=== PATIENT | male | born 1970 | race Caucasian/White ===

== ENCOUNTER 2016-07-23 04:13 | Emergency (ER) | payer OTHER ==
[~2016-07-23] VITALS: Ht 185.4 cm; Wt 83.9 kg
[2016-07-23] MEDS ORDERED: IV NORMAL SALINE 1000ML BAG 1,000 ML IV SCH (04:30)
[2016-07-23] MEDS ORDERED: ACETAMINOPHEN 500 MG TABLET PO ONE (04:30)
--- NOTE | 2016-07-23 04:32 | PHYS DOC ---
Past Medical History Past Medical History: No Pertinent History Past Surgical History: Appendectomy Smoking: Cigarettes Alcohol Use: Occasionally Drug Use: None Adult General Chief Complaint Chief Complaint: SYNCOPE HPI HPI Patient is a 46 year old male who presents by EMS from the [facility] for syncope. He has not eaten since lunch on the prior day and he went with his girlfriend to the [facility] to eat. He was feeling weak and flush while standing at the counter. He then began to have weak legs, so leaned over the counter. He stood up and felt he would pass out, then he did. Girlfriend states his eyes rolled back and he fell to the ground. He was weak and confused for a few minutes, had a couple episodes of emesis, but he is now at mental baseline. He still feels general ill feeling with some muscle cramps but now without nausea. States he is very hungry. States this ill feeling and cramps are all over his body including his chest, but he denies chest pain/pressure specifically. He denies dyspnea, cough, hemoptysis, palpitations, headache, vision changes, dizziness, numbness, tingling, weakness, leg pain or swelling, fever or chills, exertional symptoms, orthopnea. Review of Systems Review of Systems Constitutional: Denies fever or chills [] Eyes: Denies change in visual acuity, redness, or eye pain [] HENT: Denies nasal congestion or sore throat [] Respiratory: Denies cough or shortness of breath [] Cardiovascular: No additional information not addressed in HPI [] GI: Denies abdominal pain, bloody stools or diarrhea [] : Denies dysuria or hematuria [] Musculoskeletal: Denies back pain or joint pain [] Integument: Denies rash or skin lesions [] Neurologic: Denies headache, focal weakness or sensory changes [] Endocrine: Denies polyuria or polydipsia [] Current Medications Current Medications Current Medications Medications (Trade) Dose Ordered Sig/Leighton Start Time Stop Time Status Last Admin Dose Admin Acetaminophen (Tylenol) 500 mg 1X ONCE 07/23/16 04:30 07/23/16 04:36 DC 07/23/16 04:41 500 MG Sodium Chloride (Iv Sodium Chloride 0.9% 1000ml Bag) 1,000 ml @ 1,000 mls/hr Q1H 07/23/16 04:30 07/23/16 05:29 07/23/16 04:42 1,000 MLS/HR Allergies Allergies Allergies Coded Allergies Type Severity Reaction Last Updated Verified Penicillins Allergy Unknown 07/23/16 Yes Physical Exam Physical Exam Constitutional: Well developed, well nourished, no acute distress, non-toxic appearance. [] HENT: Normocephalic, atraumatic, bilateral external ears normal, oropharynx moist, no oral exudates, nose normal. [] Eyes: PERRLA, EOMI, conjunctiva normal, no discharge. [] Neck: Normal range of motion, supple, no stridor. [] Cardiovascular:Heart rate regular rhythm [] Lungs & Thorax: Bilateral breath sounds clear to auscultation [] Abdomen: Bowel sounds normal, soft, no tenderness. [] Skin: Warm, dry, no erythema, no rash. [] Back: Normal ROM. [] Extremities: No tenderness, ROM intact, no edema, normal ROM. [] Neurologic: Alert and oriented X 3, normal motor function, normal sensory function, no focal deficits noted. [] Psychologic: Affect normal, judgement normal, mood normal. [] Current Patient Data Vital Signs Vital Signs Date Time Temp Pulse Resp B/P Pulse Ox O2 Delivery O2 Flow Rate FiO2 07/23/16 04:15 98 79 16 126/82 99 Room Air 98.0 Lab Values Laboratory Tests Test 07/23/16 04:15 White Blood Count 8.4x10^3/uL (4.0-11.0) Red Blood Count 4.93x10^6/uL (4.30-5.70) Hemoglobin 15.9g/dL (13.0-17.5) Hematocrit 46.8% (39.0-53.0) Mean Corpuscular Volume 95fL (79-100) Mean Corpuscular Hemoglobin 32pg (25-35) Mean Corpuscular Hemoglobin Concent 34g/dL (31-37) Red Cell Distribution Width 13.0% (11.5-14.5) Platelet Count 149x10^3/uL (140-400) Neutrophils (%) (Auto) 63% (31-73) Lymphocytes (%) (Auto) 29% (24-48) Monocytes (%) (Auto) 6% (0-9) Eosinophils (%) (Auto) 1% (0-3) Basophils (%) (Auto) 1% (0-3) Neutrophils # (Auto) 5.3x10^3uL (1.8-7.7) Lymphocytes # (Auto) 2.4x10^3/uL (1.0-4.8) Monocytes # (Auto) 0.5x10^3/uL (0.0-1.1) Eosinophils # (Auto) 0.1x10^3/uL (0.0-0.7) Basophils # (Auto) 0.1x10^3/uL (0.0-0.2) Sodium Level 143mmol/L (136-145) Potassium Level 4.0mmol/L (3.5-5.1) Chloride Level 104mmol/L (98-107) Carbon Dioxide Level 28mmol/L (21-32) Anion Gap 11 (6-14) Blood Urea Nitrogen 18mg/dL (8-26) Creatinine 1.0mg/dL (0.7-1.3) Estimated GFR (Cockcroft-Gault) 81.2 Glucose Level 130mg/dL (70-99) H Calcium Level 9.4mg/dL (8.5-10.1) Troponin I Quantitative < 0.017ng/mL (0.000-0.055) Laboratory Tests 07/23/16 04:15 Laboratory Tests 07/23/16 04:15 EKG EKG EKG as interpreted by me as normal sinus rhythm, rate 75, no ST-T changes, normal intervals, no ectopy Radiology/Procedures Radiology/Procedures Chest xray as interpreted by me with no acute cardiopulmonary disease process Course & Med Decision Making Course & Med Decision Making Pertinent Labs and Imaging studies reviewed. (See chart for details) Workup is unremarkable. He is feeling better after eating here. He is ambulatory with a steady gait. Return precautions given. He understands and agrees with plan. Dragon Disclaimer Dragon Disclaimer This electronic medical record was generated, in whole or in part, using a voice recognition dictation system. Departure Departure Impression: Primary Impression: Syncope Disposition: 01 HOME, SELF-CARE Condition: STABLE Patient Instructions: Syncope, [id number] Additional Instructions: Follow up with your primary care doctor. Return for any concerns. Problem Qualifiers Primary Impression: Syncope Syncope type: unspecified Qualified Code: R55 - Syncope and collapse Kamaljit COLON MD Jul 23, 2016 04:32
[2016-07-23 04:35] LABS: BASO # 0.1 x10^3/uL (0.0-0.2); BASO % 1 % (0-3); EOS % 1 % (0-3); HEMATOCRIT 46.8 % (39.0-53.0); HEMOGLOBIN 15.9 g/dL (13.0-17.5); LYMPH # 2.4 x10^3/uL (1.0-4.8); LYMPH % 29 % (24-48); MEAN CORPUSCULAR HEMOGLOBIN 32 pg (25-35); MEAN CORPUSCULAR HGB CONC 34 g/dL (31-37); MEAN CORPUSCULAR VOLUME 95 fL (79-100); MONO % 6 % (0-9); NEUT % 63 % (31-73); PLATELET COUNT 149 x10^3/uL (140-400); RED BLOOD COUNT 4.93 x10^6/uL (4.30-5.70); WHITE BLOOD COUNT 8.4 x10^3/uL (4.0-11.0)
--- NOTE | 2016-07-23 04:40 | ACF ---
Admission Forms Criteria SYNCOPE Clinical Indications for Admission to Inpatient Care ( Place 'X' for any and all applicable criteria): Admission is indicated for syncope and ANY ONE of the following (1)(2)(3)(4)(5) (6)(7) : [x]I. Inpatient admission required rather than observation care (Also use Syncope: Observation Care Criteria as appropriate) because of ANY ONE of the following: [ ]a) Hemodynamic instability that is severe or persistent [ ]b) Cardiac arrhythmias of immediate concern identified or strongly suspected (eg, needs electrophysiologic study) [ ]c) Acute coronary syndrome identified (Also use Myocardial Infarction or Angina Criteria form ) [ ]d) Structural cardiac disorder (eg, aortic stenosis) suspected as cause that requires immediate correction [ ]e) Respiratory symptoms (eg, dyspnea, tachypnea) that are severe or persistent [ ]f) Neurologic signs or symptoms that are severe or persistent ( eg, stroke, seizures, altered mental status) [ ]g) Severe electrolyte abnormalities requiring inpatient care [ ]h) Supplemental oxygen or respiratory treatment for over 24 hrs that are performable only in acute inpatient setting [ ]i) IV fluid to replace significant ongoing (eg, for over 24 hrs ) losses (>3 L/m2 per day) [ ]j) Continuous intravenous infusion of anticoagulation, platelet inhibitor, vasoactive, or antiarrhythmic medication(15)(16) [ ]k) Pulmonary artery catheter monitoring [ ]l) Temporary pacemaker placement(17) [ ]m) Emergent cardioversion(18) [X]n) Other conditions, treatment or monitoring requiring inpatient admission [ ]II. Suspicion of imminently dangerous cause (eg, rare causes like pericardial tamponade, pulmonary embolism) [ ]III. Syncope causing severe injury requiring hospitalization Extended stay beyond goal length of stay may be needed for(28) [ ]a) Dangerous arrhythmia(15)(23)(27)(29) [ ]b) Myocardial ischemia [ ]c) Seizure disorder [ ]d) Syncope-related injuries The original [employer] content created by [employer] has been revised. The portions of the content which have been revised are identified through the use of italic text or in bold, and [employer] has neither reviewed nor approved the modified material. All other unmodified content is copyright [employer]. Please see references footnoted in the original [facility] edition 2016 Admission Criteria Met?: No KENZIE ADLER Jul 23, 2016 04:40
[2016-07-23 04:44] LABS: CALCIUM 9.4 mg/dL (8.5-10.1); GFR 81.2
[2016-07-23 05:18] VITALS: BP 105/74
--- NOTE | 2016-07-23 07:49 | RAD ---
Exam performed: One view chest. Indication: syncope Date of Service: 07/23/2016 6:22 AM Comparison: None available. Single AP upright portable view chest findings: Cardiomediastinal silhouette is within limits of normal. No acute infiltrates, effusion or pneumothorax is detected. The bony structures are normal. Impression: No acute cardiopulmonary process is detected.
--- NOTE | 2016-07-23 11:09 | EKG ---
[facility] [address] [place] [address] Test Date: 2016-07-23 Test Time: 04:14:33 Pat Name: SAMANTHA PINA Department: Room: Gender: M Safety Coordinator: : 1970 Requested By: Kamaljit COLON Order Number: [id number] Reading MD: Measurements Intervals [place] Rate: 75 P: 37 AL: 156 QRS: -25 QRSD: 86 T: 77 QT: 352 QTc: 396 Interpretive Statements SINUS RHYTHM LEFTWARD AXIS R-S TRANSITION ZONE IN V LEADS DISPLACED TO THE RIGHT CONSIDER LEFT VENTRICULAR HYPERTROPHY T ABNORMALITY IN HIGH LATERAL LEADS RI6.01 Unconfirmed report No previous ECG available for comparison
== END 2016-07-23 05:30 | disposition home or self-care (01) ==
LOC: ER 04:13
DX: R55 Syncope and collapse (principal); F17.210 Nicotine dependence, cigarettes, uncomplicated; Z88.0 Allergy status to penicillin
CPT/HCPCS: 36415; 71010; 80048; 84484; 85027; 93005; 96360; 99285; J7030

== ENCOUNTER 2019-05-18 20:50 | Emergency (ER) | payer OTHER ==
[~2019-05-18] VITALS: Ht 177.8 cm; Wt 83.9 kg
[2019-05-18 21:44] LABS: BASO # 0.1 x10^3/uL (0.0-0.2); BASO % 1 % (0-3); EOS # 0.1 x10^3/uL (0.0-0.7); EOS % 1 % (0-3); HEMATOCRIT 45.4 % (39.0-53.0); HEMOGLOBIN 15.8 g/dL (13.0-17.5); LYMPH # 3.3 x10^3/uL (1.0-4.8); LYMPH % 32 % (24-48); MEAN CORPUSCULAR HEMOGLOBIN 33 pg (25-35); MEAN CORPUSCULAR HGB CONC 35 g/dL (31-37); MEAN CORPUSCULAR VOLUME 95 fL (79-100); MONO # 0.7 x10^3/uL (0.0-1.1); MONO % 7 % (0-9); NEUT # 6.2 x10^3/uL (1.8-7.7); NEUT % 59 % (31-73); PLATELET COUNT 190 x10^3/uL (140-400); RED BLOOD COUNT 4.75 x10^6/uL (4.30-5.70); RED CELL DISTRIBUTION WIDTH 12.9 % (11.5-14.5); WHITE BLOOD COUNT 10.4 x10^3/uL (4.0-11.0)
[2019-05-18 21:58] LABS: CALCIUM 8.9 mg/dL (8.5-10.1); GFR 80.4; POTASSIUM 3.7 mmol/L (3.5-5.1)
[2019-05-18 22:03] LABS: ALBUMIN 4.3 g/dL (3.4-5.0); ALBUMIN/GLOBULIN RATIO 1.2 (1.0-1.7); MAGNESIUM 2.1 mg/dL (1.8-2.4); TOTAL BILIRUBIN 0.5 mg/dL (0.2-1.0); TOTAL PROTEIN 7.8 g/dL (6.4-8.2)
[2019-05-18] MEDS: MULTIVIT INFUSN,ADULT 4,VIT K 10 ML, THIAMINE INJ 100 MG, FOLIC ACID INJ 1 MG in IV NOR... IV ONE (22:03)
[2019-05-18 22:14] LABS: CREATINE KINASE 56 U/L (39-308)
[2019-05-18 22:26] LABS: ACETAMIN < 2 mcg/ml (10-30); SALIC 5.2 mg/dL (2.8-20.0)
--- NOTE | 2019-05-18 22:40 | RAD ---
EXAM: CHEST ONE VIEW. HISTORY: Syncope. COMPARISON: 07/23/2016. FINDINGS: A frontal view of the chest is obtained. There are no confluent infiltrates. There is no pneumothorax or pleural effusion. The heart is not enlarged. IMPRESSION: 1. No confluent infiltrates. Electronically signed by: Jacob Mckenzie MD (05/18/2019 10:38 PM) [facility]
--- NOTE | 2019-05-18 22:42 | RAD ---
EXAM: CT Head without IV contrast CLINICAL HISTORY: Syncope, EtOH COMPARISON: None. TECHNIQUE: Routine CT of the head without contrast. Soft tissues and bone windows were reviewed. PQRS compliance statement - One or more of the following individualized dose reduction techniques were utilized for this study: 1. Automated exposure control 2. Adjustment of the mA and/or kV according to patient size 3. Use of iterative reconstruction technique FINDINGS: There is no evidence of hemorrhage, mass or extra-axial fluid collection. Contreras-white differentiation is maintained with no evidence of edema. There is no mass effect or shift of the intracranial structures. The ventricles, basilar cisterns and cortical sulci are normal in size and configuration for the patients stated age. The cerebellum and brainstem are unremarkable. The calvarium demonstrates no evidence of fracture or focal lesion. There is normal aeration of the visualized paranasal sinuses and mastoid air cells. The visualized portions of the orbits are normal. IMPRESSION: No evidence for acute intracranial process Electronically signed by: Daniel Infante MD (05/18/2019 10:40 PM) [facility]
--- NOTE | 2019-05-18 22:44 | RAD ---
EXAM: PA, oblique and lateral views left hand DATE: 05/18/2019 9:36 PM INDICATION: Syncope, left hand injury, left hand pain COMPARISON: No Prior FINDINGS/ IMPRESSION: Comminuted fracture through the midshaft of the middle finger metacarpal with butterfly fragment in mild apex dorsal dilatation. Moderate associated soft tissue swelling. Electronically signed by: Daniel Infante MD (05/18/2019 10:41 PM) [facility]
[2019-05-18 23:40] LABS: BILIRUBIN,URINE NEGATIVE (NEG); CLARITY,URINE CLOUDY; COLOR,URINE YELLOW; NITRITE,URINE NEGATIVE (NEG); PH,URINE 5.5; PROTEIN,URINE NEGATIVE (NEG-TRACE); UROBILINOGEN,URINE 0.2 mg/dL (0.2 mg/dL)
[2019-05-18 23:46] LABS: SQUAMOUS EPITHELIAL CELL,UR OCC /LPF
[2019-05-18 23:47] LABS: BACTERIA,URINE 0 /HPF (0-FEW); BARBITURATES NEG (NEG); BENZODIAZEPINES NEG (NEG); CANNABINOIDS NEG (NEG); COCAINE NEG (NEG); METHADONE NEG (NEG); OPIATES NEG (NEG); PHENCYCLIDINE NEG (NEG); RBC,URINE 0 /HPF (0-2); WBC,URINE 0 /HPF (0-4)
[2019-05-18 23:48] LABS: AMPHETAMINE/METHAMPHETAMINE NEG (NEG)
--- NOTE | 2019-05-19 | PHYS DOC ---
Past Medical History Past Medical History: Alcoholism, Diabetes-Type II, High Cholesterol Additional Past Medical Histor: "daily stroke like symptoms" Past Surgical History: Appendectomy Alcohol Use: Occasionally Drug Use: None Adult General Chief Complaint Chief Complaint: ALCOHOL INTOXICATION HPI HPI Patient is a 48 year old male with history of diabetes type 2, high cholesterol, alcoholism, who [place] after having a syncope episode. Patient himself states he was very drunk and passed out. He states he is a binge drinker. He is in the ED with a fianc who reports patient has had multiple syncope episodes, has been seen by the combination machine tender who recommended he follows up with the neurologist. Patient reports he has not seen a neurologist yet. Patient denies any chest pain or shortness of breath. He is complaining of moderate pain to the left middle finger described as sharp and constant worse on range of motion. He states he feels a little bit sobered up. Review of Systems Review of Systems Constitutional: Denies fever or chills [] Eyes: Denies change in visual acuity, redness, or eye pain [] HENT: Denies nasal congestion or sore throat [] Respiratory: Denies cough or shortness of breath [] Cardiovascular: No additional information not addressed in HPI [] GI: Denies abdominal pain, nausea, vomiting, bloody stools or diarrhea [] : Denies dysuria or hematuria [] Musculoskeletal: Reports left middle finger pain. Denies back pain Integument: Denies rash or skin lesions [] Neurologic: Denies headache, focal weakness or sensory changes [] Psych: Reports alcohol intoxication All other systems were reviewed and found to be within normal limits, except as documented in this note. Current Medications Current Medications Current Medications Medications (Trade) Dose Ordered Sig/Leighton Start Time Stop Time Status Last Admin Dose Admin Multivitamins 10 ml/Thiamine HCl 100 mg/Folic Acid 1 mg/Sodium Chloride 1,011.2 ml @ 1,000.088 mls/hr 1X ONCE 05/18/19 22:30 05/18/19 23:30 DC 05/18/19 22:03 1,000.088 MLS/HR Allergies Allergies Allergies Coded Allergies Type Severity Reaction Last Updated Verified Penicillins Allergy Intermediate 05/18/19 Yes Physical Exam Physical Exam Constitutional: Well developed, well nourished, no acute distress, non-toxic appearance. [] HENT: Normocephalic, bilateral external ears normal, oropharynx moist, no oral exudates, nose normal. [] Eyes: PERRLA, EOMI, conjunctiva normal, no discharge. [] Neck: Normal range of motion, no tenderness, supple, no stridor. [] Cardiovascular:Heart rate regular rhythm, no murmur [] Lungs & Thorax: Bilateral breath sounds clear to auscultation [] Abdomen: Bowel sounds normal, soft, no tenderness, no masses, no pulsatile masses. [] Skin: Warm, dry, no erythema, no rash. [] Back: No tenderness, no CVA tenderness. [] Extremities: Left middle finger knuckle appears deformed, tenderness to the left middle finger diffusely. Limited range of motion to the left middle finger. +2 left radial pulse. Adequate radial and ulnar sensation to the left middle finger. Cap refill less than 2 seconds the left middle finger. Neurologic: Alert and oriented X 3, normal motor function, normal sensory function, no focal deficits noted. Cranial nerves II through XII intact Psychologic: Flat affect, smells of alcohol Current Patient Data Vital Signs Vital Signs Date Time Temp Pulse Resp B/P (MAP) Pulse Ox O2 Delivery O2 Flow Rate FiO2 05/18/19 23:26 76 107/70 (82) 97 Room Air 05/18/19 20:50 97.3 16 97.3 Lab Values Laboratory Tests Test 05/18/19 21:03 05/18/19 23:30 White Blood Count 10.4 x10^3/uL (4.0-11.0) Red Blood Count 4.75 x10^6/uL (4.30-5.70) Hemoglobin 15.8 g/dL (13.0-17.5) Hematocrit 45.4 % (39.0-53.0) Mean Corpuscular Volume 95 fL (79-100) Mean Corpuscular Hemoglobin 33 pg (25-35) Mean Corpuscular Hemoglobin Concent 35 g/dL (31-37) Red Cell Distribution Width 12.9 % (11.5-14.5) Platelet Count 190 x10^3/uL (140-400) Neutrophils (%) (Auto) 59 % (31-73) Lymphocytes (%) (Auto) 32 % (24-48) Monocytes (%) (Auto) 7 % (0-9) Eosinophils (%) (Auto) 1 % (0-3) Basophils (%) (Auto) 1 % (0-3) Neutrophils # (Auto) 6.2 x10^3/uL (1.8-7.7) Lymphocytes # (Auto) 3.3 x10^3/uL (1.0-4.8) Monocytes # (Auto) 0.7 x10^3/uL (0.0-1.1) Eosinophils # (Auto) 0.1 x10^3/uL (0.0-0.7) Basophils # (Auto) 0.1 x10^3/uL (0.0-0.2) Sodium Level 137 mmol/L (136-145) Potassium Level 3.7 mmol/L (3.5-5.1) Chloride Level 99 mmol/L (98-107) Carbon Dioxide Level 24 mmol/L (21-32) Anion Gap 14 (6-14) Blood Urea Nitrogen 11 mg/dL (8-26) Creatinine 1.0 mg/dL (0.7-1.3) Estimated GFR (Cockcroft-Gault) 80.4 BUN/Creatinine Ratio 11 (6-20) Glucose Level 118 mg/dL (70-99) H Calcium Level 8.9 mg/dL (8.5-10.1) Magnesium Level 2.1 mg/dL (1.8-2.4) Total Bilirubin 0.5 mg/dL (0.2-1.0) Aspartate Amino Transferase (AST) 30 U/L (15-37) Alanine Aminotransferase (ALT) 51 U/L (16-63) Alkaline Phosphatase 96 U/L (46-116) Creatine Kinase 56 U/L (39-308) Creatine Kinase MB (Mass) < 0.5 ng/mL (0.0-3.6) Creatine Kinase MB Relative Index % (0-4) Troponin I Quantitative < 0.017 ng/mL (0.000-0.055) BP-Kbu-D-Type Natriuretic Peptide 21 pg/mL (0-124) Total Protein 7.8 g/dL (6.4-8.2) Albumin 4.3 g/dL (3.4-5.0) Albumin/Globulin Ratio 1.2 (1.0-1.7) Lipase 146 U/L (73-393) Thyroid Stimulating Hormone (TSH) 4.148 uIU/mL (0.358-3.74) H Salicylates Level 5.2 mg/dL (2.8-20.0) Salicylate Last Dose Date Unknown Salicylate Last Dose Time Unknown Acetaminophen Level < 2 mcg/ml (10-30) L Acetaminophen Last Dose Date Unknown Acetaminophen Last Dose Time Unknown Ethyl Alcohol Level 195 mg/dL (0-10) H Urine Collection Type Unknown Urine Color Yellow Urine Clarity Cloudy Urine pH 5.5 Urine Specific [place] 1.010 Urine Protein Negative mg/dL (NEG-TRACE) Urine Glucose (UA) Negative mg/dL (NEG) Urine Ketones (Stick) Negative mg/dL (NEG) Urine Blood Negative (NEG) Urine Nitrite Negative (NEG) Urine Bilirubin Negative (NEG) Urine Urobilinogen Dipstick 0.2 mg/dL (0.2 mg/dL) Urine Leukocyte Esterase Negative (NEG) Urine RBC 0 /HPF (0-2) Urine WBC 0 /HPF (0-4) Urine Squamous Epithelial Cells Occ /LPF Urine Bacteria 0 /HPF (0-FEW) Urine Mucus Slight /LPF Urine Opiates Screen Neg (NEG) Urine Methadone Screen Neg (NEG) Urine Barbiturates Neg (NEG) Urine Phencyclidine Screen Neg (NEG) Urine Amphetamine/Methamphetamine Neg (NEG) Urine Benzodiazepines Screen Neg (NEG) Urine Cocaine Screen Neg (NEG) Urine Cannabinoids Screen Neg (NEG) Urine Ethyl Alcohol Pos (NEG) Laboratory Tests 05/18/19 21:03 Laboratory Tests 05/18/19 21:03 EKG EKG [] Radiology/Procedures Radiology/Procedures []PROCEDURE: PORTABLE CHEST 1V EXAM: CHEST ONE VIEW. HISTORY: Syncope. COMPARISON: 07/23/2016. FINDINGS: A frontal view of the chest is obtained. There are no confluent infiltrates. There is no pneumothorax or pleural effusion. The heart is not enlarged. IMPRESSION: 1. No confluent infiltrates. Electronically signed by: Jacob Mckenzie MD (05/18/2019 10:38 PM) [facility] DICTATED and SIGNED BY: NATE MCKENZIE MD DATE: 05/18/19 223 PROCEDURE: CT HEAD WO CONTRAST EXAM: CT Head without IV contrast CLINICAL HISTORY: Syncope, EtOH COMPARISON: None. TECHNIQUE: Routine CT of the head without contrast. Soft tissues and bone windows were reviewed. PQRS compliance statement - One or more of the following individualized dose reduction techniques were utilized for this study: 1. Automated exposure control 2. Adjustment of the mA and/or kV according to patient size 3. Use of iterative reconstruction technique FINDINGS: There is no evidence of hemorrhage, mass or extra-axial fluid collection. Contreras-white differentiation is maintained with no evidence of edema. There is no mass effect or shift of the intracranial structures. The ventricles, basilar cisterns and cortical sulci are normal in size and configuration for the patients stated age. The cerebellum and brainstem are unremarkable. The calvarium demonstrates no evidence of fracture or focal lesion. There is normal aeration of the visualized paranasal sinuses and mastoid air cells. The visualized portions of the orbits are normal. IMPRESSION: No evidence for acute intracranial process Electronically signed by: Daniel Genao MD (05/18/2019 10:40 PM) [facility] DICTATED and SIGNED BY: DANIEL GENAO MD DATE: 05/18/192239 PROCEDURE: HAND LEFT 3V EXAM: PA, oblique and lateral views left hand DATE: 05/18/2019 9:36 PM INDICATION: Syncope, left hand injury, left hand pain COMPARISON: No Prior FINDINGS/ IMPRESSION: Comminuted fracture through the midshaft of the middle finger metacarpal with butterfly fragment in mild apex dorsal dilatation. Moderate associated soft tissue swelling. Electronically signed by: Daniel Genao MD (05/18/2019 10:41 PM) [facility] DICTATED and SIGNED BY: DANIEL GENAO MD DATE: 05/18/19 2241 Course & Med Decision Making Course & Med Decision Making Pertinent Labs and Imaging studies reviewed. (See chart for details) This is a 48-year-old male patient with a history of binge drinking who presents the ED today to be evaluated [place] Patient reports he was heavily drunk. He is only complaining of left middle finger pain. CT of the head is negative for any acute findings. CBC, CMP-no acute findings. Alcohol level 195-patient refused help with alcohol. I did talk to [facility] PAT team she recommended he follows up with employee assistance program at work or call his medical insurance and requests help with substance abuse treatment Left hand x-rays interpreted by radiologist Comminuted fracture through the mid shaft of the middle finger metacarpal with butterfly fragment in mild apex dorsal dilatation. Moderate associated soft tissue swelling. Patient was placed in the left hand volar splint by the technical services librarian, neurovascular exam done by me is intact. Instructed to call the orthopedic on Monday for a follow-up. Dragon Disclaimer Dragon Disclaimer This electronic medical record was generated, in whole or in part, using a voice recognition dictation system. Departure Departure Impression: Primary Impression: Syncope Additional Impressions: Alcohol intoxication Fracture of metacarpal of left hand, closed Disposition: 01 HOME, SELF-CARE Condition: STABLE Referrals: UNKNOWN PCP NAME (PCP) QUIRINO LO MD call him on Monday and set up a follow up appointment Patient Instructions: Alcohol Intoxication, Hand Fracture, Metacarpals, Syncope, [id number] Additional Instructions: You were evaluated in the emergency room for alcohol intoxication with a syncope episode. Please consider getting help as discussed with either your insurance company or employee health program at work You also have fracture of the left hand metacarpal, contact the provided ortho pedic doctor on Monday morning and set up a follow-up appointment as an outpatient Problem Qualifiers Primary Impression: Syncope Syncope type: unspecified Qualified Codes: R55 - Syncope and collapse Additional Impressions: Alcohol intoxication Complication of substance-induced condition: with unspecified complication Qualified Codes: F10.929 - Alcohol use, unspecified with intoxication, unspecified Fracture of metacarpal of left hand, closed Encounter type: initial encounter Metacarpal bone: third Metacarpal location: shaft Fracture alignment: nondisplaced Qualified Codes: S62.353A - Nondisplaced fracture of shaft of third metacarpal bone, left hand, initial encounter for closed fracture ANDREINA OLEARY APRN May 19, 2019 00:00
[2019-05-19 00:08] VITALS: BP 102/64
--- NOTE | 2019-05-19 16:31 | EKG ---
[facility] [address] [place] [address] Test Date: 2019-05-18 Test Time: 21:39:28 Pat Name: SAMANTHA PINA Department: Room: Gender: M Transportation Dispatch Manager: : 1970 Requested By: ANDREINA OLEARY Order Number: [id number] Reading MD: Measurements Intervals [place] Rate: 71 P: -147 [place]: 92 QRS: -18 QRSD: 94 T: 72 QT: 378 QTc: 411 Interpretive Statements SINUS RHYTHM LEFTWARD AXIS T ABNORMALITY IN HIGH LATERAL LEADS ABNORMAL ECG RI6.01 No previous ECG available for comparison
== END 2019-05-19 00:38 | disposition home or self-care (01) ==
LOC: ER 20:50
DX: S62.353A Nondisplaced fracture of shaft of third metacarpal bone, left hand, initial encounter for closed fracture (principal); R55 Syncope and collapse; F10.929 Alcohol use, unspecified with intoxication, unspecified; E11.9 Type 2 diabetes mellitus without complications; E78.00 Pure hypercholesterolemia, unspecified; Z88.0 Allergy status to penicillin; W18.39XA Other fall on same level, initial encounter; Y93.01 Activity, walking, marching and hiking; Y92.89 Other specified places as the place of occurrence of the external cause; Y99.8 Other external cause status
CPT/HCPCS: 29125; 36415; 70450; 71045; 73130; 80053; 80307; 80329; 81001; 82553; 83690; 83735; 83880; 84443; 84484; 85025; 93005; 96365; 96366; 99285; G0480; J7030